=== PATIENT | female | born 1995 | race American Indian/Alaskan Native ===

== ENCOUNTER 2018-10-24 23:47 | Emergency (ER) | payer OTHER ==
[2018-10-25 00:23] LABS: Basophils % (Auto) 0.5 % (0.0-1.8); Eosinophils % (Auto) 0.3 % (0.0-4.3); Hematocrit 33.9 % (30.3-42.9); Hemoglobin 11.9 gm/dl (10.1-14.3); Lymphocytes # (Auto) 1.2 K/mm3 (1.2-5.4); Lymphocytes % (Auto) 18.7 % (13.4-35.0); Mean Corpuscular HGB Conc 35 % (30-34); Mean Corpuscular Volume 83 fl (79-97); Monocytes # (Auto) 0.5 K/mm3 (0.0-0.8); Platelet Count 307 K/mm3 (140-440); Red Cell Distribution Width 13.6 % (13.2-15.2)
[2018-10-25 00:55] LABS: Alanine Aminotransferase 28 units/L (7-56); Albumin 4.1 g/dL (3.9-5); BUN/Creatinine Ratio 8; Blood Urea Nitrogen 4 mg/dL (7-17); Calcium 9.5 mg/dL (8.4-10.2); Hemolysis Index 1
[2018-10-25 01:26] LABS: Bilirubin,Urine NEG (Negative); Blood,Urine NEG (Negative); Color,Urine Yellow (Yellow); Mucus,Urine FEW /HPF; Protein,Urine <15 mg/dL mg/dL (Negative); RBC,Urine < 1.0 /HPF (0.0-6.0); Urobilinogen,Urine < 2.0 mg/dL (<2.0)
[2018-10-25 06:10] VITALS: BP 114/72
--- NOTE | 2018-10-25 08:20 | Emergency Department Report ---
ED Female HPI - General Chief complaint: Abdominal Pain Stated complaint: /CRAMPS/BACK,STOMACH PAIN Time Seen by Provider: 10/25/18 07:57 Source: patient Mode of arrival: Ambulatory Limitations: No Limitations - History of Present Illness Initial comments: 23-year-old male female G1, P0, presents with chest tube was department complaining of pelvic pain, being 16 weeks and had no care. She denies any vaginal bleeding or vaginal discharge. No fever, chills, sweats, palpitations. No diarrhea or constipation. No no nausea, vomiting. Pain is crampy and sharp in nature and radiates across the pelvis through to her back, although she does have a chronic history of back pain. States she has an appointment within [facility] on 10/28/2018 MD Complaint: pelvic pain Location: suprapubic Radiation: suprapubic Severity: moderate Quality: cramping, sharp Consistency: intermittent Improves with: none Worsens with: none Are you Now?: Yes (16 weeks) Associated Symptoms: denies: vaginal discharge, vaginal bleeding, abdominal pain, loss of appetite, dysuria, hematuria, syncope, weakness - Related Data Allergies Allergy/AdvReac Type Severity Reaction Status Date / Time No Known Allergies Allergy Unverified 10/25/18 00:00 ED Review of Systems ROS: Stated complaint: /CRAMPS/BACK,STOMACH PAIN Other details as noted in HPI Constitutional: denies: chills, fever Eyes: denies: eye pain, eye discharge, vision change ENT: denies: ear pain, throat pain Respiratory: denies: cough, shortness of breath, wheezing Cardiovascular: denies: chest pain, palpitations Endocrine: no symptoms reported Gastrointestinal: denies: abdominal pain, nausea, diarrhea Genitourinary: denies: urgency, dysuria, discharge Musculoskeletal: back pain. denies: joint swelling, arthralgia Skin: denies: rash, lesions Neurological: denies: headache, weakness, paresthesias Psychiatric: denies: anxiety, depression Hematological/Lymphatic: denies: easy bleeding, easy bruising ED Past Medical Hx - Past Medical History Previous Medical History?: No - Surgical History Past Surgical History?: No - Social History Smoking Status: Never Smoker Substance Use Type: None ED Physical Exam - General Limitations: No Limitations General appearance: alert, in no apparent distress - Head Head exam: Present: atraumatic, normocephalic - Eye Eye exam: Present: normal appearance, PERRL, EOMI Pupils: Present: normal accommodation - ENT ENT exam: Present: normal exam, normal orophraynx, mucous membranes moist - Neck Neck exam: Present: normal inspection - Respiratory Respiratory exam: Present: normal lung sounds bilaterally. Absent: respiratory distress - Cardiovascular Cardiovascular Exam: Present: regular rate, normal rhythm. Absent: systolic murmur, diastolic murmur, rubs, gallop - GI/Abdominal GI/Abdominal exam: Present: soft, normal bowel sounds - Extremities Exam Extremities exam: Present: normal inspection, normal capillary refill - Back Exam Back exam: Present: normal inspection. Absent: CVA tenderness (R), CVA tenderness (L) - Neurological Exam Neurological exam: Present: alert, oriented X3, CN II-XII intact, normal gait - Psychiatric Psychiatric exam: Present: normal affect, normal mood. Absent: flat affect - Skin Skin exam: Present: warm, dry, intact, normal color. Absent: rash, diaphoretic, erythema, petechiae, pallor ED Course Vital Signs 10/24/18 10/25/18 10/25/18 23:57 06:06 06:40 Temperature 98.2 F 98.3 F Pulse Rate 102 H 73 Respiratory 16 18 20 Rate Blood Pressure 148/88 Blood Pressure 114/72 [Right] O2 Sat by Pulse 99 99 Oximetry ED Medical Decision Making - Lab Data Result diagrams: 10/25/18 00:05 10/25/18 00:05 - Radiology Data Radiology results: report reviewed - Differential Diagnosis threaded miscarriage, cramps, malignancy, UTI Critical care attestation.: If time is entered above; I have spent that time in minutes in the direct care of this critically ill patient, excluding procedure time. ED Disposition Clinical Impression: Discomfort during Disposition: DC-01 TO HOME OR SELFCARE Is pt being admited?: No Does the pt Need Aspirin: No Condition: Stable Instructions: Abdominal Pain (ED) Referrals: PRIMARY CARE,MD [Primary Care Provider] - 3-5 Days (Keep appointment with your [facility] on October 28. Continue your vitamins and take Tylenol as needed)
--- NOTE | 2018-10-25 09:42 | Ultrasound Report ---
FINAL REPORT EXAM: US OB >= 14 WEEKS FETUS HISTORY: 16 weeks and having cramping. no COMPARISON: None. TECHNIQUE: Transabdominal obstetric ultrasound was performed. FINDINGS: The cervix measures 2.2 centimeters in length and is closed. There is an anterior, grade 0 placenta. There is a single live intrauterine in cephalic presentation. heart rate is 142 beats per minute Biparietal diameter corresponds to a gestational age of 17 weeks, 1 day. Head circumference corresponds to a gestational age of 16 weeks, 5 days. Abdominal circumference corresponds to a gestational age of 16 weeks, 4 days. Femoral length corresponds to a gestational age of 16 weeks, 2 days. Gestational age by ultrasound is 16 weeks, 5 days, with estimated date of delivery of 04/06/2019 Estimated weight is 159 grams. IMPRESSION: Single live intrauterine with gestational age by ultrasound of 16 weeks, 5 days, with estim ated date of delivery of 04/06/2019. The cervix is somewhat short but is closed.
== END 2018-10-25 10:34 | disposition home or self-care (01) ==
LOC: ED 23:47
DX: O26.892 Other specified pregnancy related conditions, second trimester (principal); R10.2 Pelvic and perineal pain; Z3A.16 16 weeks gestation of pregnancy
CPT/HCPCS: 36415; 76805; 80053; 81001; 84702; 85025; 86850; 86900; 86901